=== PATIENT | male | born 1995 | race Caucasian/White ===

== ENCOUNTER 2019-04-12 21:49 | Emergency (ER) | payer MEDICAID ==
[~2019-04-12] VITALS: Ht 170.2 cm; Wt 108.9 kg
--- NOTE | 2019-04-12 22:13 | NUR ---
SOHAIL C/O "I'M DIZZY, MY HEART IS RACING, AND MY HANDS ARE SWEATY" SINCE 2099 TO ER BED 2, VSS, AWAITING MED EVAL
[2019-04-12] MEDS ORDERED: IV NS 0.9% 1,000 ML BAG IV ONE (22:30)
[2019-04-12 22:40] LABS: BASOPHILS # (AUTO) 0.1 /CMM (0.0-0.2); BASOPHILS % (AUTO) 0.8 % (0.0-2.0); EOSINOPHILS % (AUTO) 3.1 % (0.0-6.0); HEMATOCRIT 46 % (39-51); HEMOGLOBIN 15.2 g/dL (13.5-17.5); LYMPHOCYTES # (AUTO) 1.9 /CMM (0.8-4.8); LYMPHOCYTES % (AUTO) 22.7 % (20.0-44.0); MEAN CORPUSCULAR HGB CONC 33 g/dl (31.0-36.0); MEAN CORPUSCULAR VOLUME 87 fL (80-96); MONOCYTES # (AUTO) 0.9 /CMM (0.1-1.30); NEUTROPHILS # (AUTO) 5.1 /CMM (1.8-8.9); NEUTROPHILS % (AUTO) 62.4 % (43.0-81.0); PLATELET COUNT (AUTO) 271 /CMM (150-450); WHITE BLOOD COUNT (AUTO) 8.2 K/uL (4.3-11.0)
--- NOTE | 2019-04-12 22:40 | NUR ---
LINE STARTED, BLOOD SENT TO LAB
[2019-04-12 22:52] LABS: CALCIUM, SERUM 8.8 mg/dL (8.5-10.1); CREATININE 1.5 mg/dL (0.6-1.3); POTASSIUM 3.7 mmol/L (3.5-5.1)
[2019-04-12 23:30] LABS: THYROID STIMULATING HORMONE 1.882 uIU/mL (0.358-3.74)
[2019-04-13 00:13] VITALS: BP 133/80
--- NOTE | 2019-04-13 00:13 | NUR ---
Patient discharged to home in stable condition. Written and verbal after care instructions given. Patient verbalizes understanding of instruction.
== END 2019-04-13 00:14 | disposition home or self-care (01) ==
LOC: EDSEX 21:57 → ER 21:57
DX: E86.0 Dehydration (principal); R00.2 Palpitations; F17.200 Nicotine dependence, unspecified, uncomplicated
CPT/HCPCS: 36415; 80048; 84443; 85025; 93005; 96360; 99284; 99406; J7030